=== PATIENT | female | born 1935 | race Caucasian/White ===

== ENCOUNTER 2020-06-08 13:34 | Outpatient (CLI) | payer OTHER, SELFPAY ==
--- NOTE | ~2020-06-08 | US_ITS ---
EXAMINATION: US soft tissue UE RT DATE: 06/08/2020 14:01 INDICATION: Localized swelling, mass and lump in the webspace between the right second and third digi ts. TECHNIQUE: Multiple grayscale and Doppler ultrasound images of the region of concern at the right dick d were obtained. COMPARISON: None FINDINGS: The palpable abnormality of concern corresponds to a 1.3 x 0.7 x 0.9 cm anechoic lesion with lobular margins and without internal flow on color Doppler situated dorsally between the heads of the second and third metacarpophalangeal joints consistent with a ganglion cyst. IMPRESSION: 1. 13 x 7 x 9 mm ganglion cyst. Reviewed, dictated and finalized at location B.
== END 2020-06-08 13:35 | disposition home or self-care (01) ==
PROVIDERS: PCP Family Medicine; Visit Provider Physician Assistant
DX: R22.31 Localized swelling, mass and lump, right upper limb (principal)
CPT/HCPCS: 76882

== ENCOUNTER → 2020-09-24 08:02 | Outpatient (CLI) | payer OTHER, SELFPAY ==
--- NOTE | ~2020-09-24 | CT_ITS ---
EXAMINATION: CT abdomen pelvis wo con DATE: 09/24/2020 08:20 INDICATION: Abdominal hernia without obstruction TECHNIQUE: Computed tomography (CT) of the abdomen and pelvis was performed without intravenous contr ast. Automated exposure control and iterative reconstruction technique were employed. The dose-length product was 413.78 mGy-cm. COMPARISON: None FINDINGS: A few small calcified nodules in the left lower lung along with calcified mediastinal lymph nodes and scattered hepatic and splenic calcifications consistent with old granulomatous disease. Small amount of fluid within a pneumatocele at the anterobasilar right lower lobe. Heart size is normal. There is localized intrahepatic biliary ductal dilation in segments 6 and 7 of the liver without evident obst ructing stone which raises concern for biliary stricture or obstructing mass versus glandular carcino ma at the right heriberto hepatis. Pancreas and bilateral adrenal glands are normal. Bilateral renal cyst s, the largest measuring 4.9 cm the upper pole of the right kidney. Mild left hydronephrosis without evident obstructing stone or mass. Bladder is normal. The uterus is not identified and has likely bee n surgically resected. There are few scattered sigmoid diverticula without adjacent inflammatory sanchez ge to suggest diverticulitis. No bowel obstruction. The appendix is not visualized. No pericecal infl ammatory change to suggest acute appendicitis. No free intraperitoneal gas or fluid. No pathologicall y enlarged abdominal or pelvic lymphadenopathy. Mild thoracolumbar dextrocurvature with moderate to s evere lumbar and lower thoracic spondylosis. 7 mm anterolisthesis L4 on L5. IMPRESSION: 1. Geographically limited intrahepatic biliary ductal dilation in the posterior right hepatic lobe wh ich raises concern for biliary stricture or obstructing malignancy such as cholangiocarcinoma. Would recommend further evaluation with pre and postcontrast MRI/MRCP. 2. Mild left hydronephrosis without evident obstructing stone or mass. Correlate with urinalysis and could consider further evaluation with CT urogram as clinically indicated. 3. Mild sigmoid diverticulosis. Reviewed, dictated and finalized at location B. INSPECTOR IMPRESSION: 1. Geographically limited intrahepatic biliary ductal dilation in the posterior right hepatic lobe which raises concern for biliary stricture or obstructing m alignancy such as cholangiocarcinoma. Would recommend further evaluation with p re and postcontrast MRI/MRCP. 2. Mild left hydronephrosis without evident obstructing stone or mass. Correlat e with urinalysis and could consider further evaluation with CT urogram as clin ically indicated. 3. Mild sigmoid diverticulosis.
== END ==
PROVIDERS: PCP Family Medicine; Visit Provider Family Medicine
DX: K46.9 Unspecified abdominal hernia without obstruction or gangrene (principal); K57.30 Diverticulosis of large intestine without perforation or abscess without bleeding; N20.0 Calculus of kidney
CPT/HCPCS: 74176

== ENCOUNTER 2020-10-27 15:03 | Outpatient (CLI) | payer OTHER, SELFPAY ==
[2020-10-27 15:45] LABS: Hematocrit 34.7 % (37.0-47.0); Hemoglobin 11.6 g/dL (12.0-15.0); Mean Corpuscular HGB Conc 33.4 g/dl (32-36); Mean Corpuscular Volume 95.9 fl (80-100); Mean Platelet Volume 10.5 fl (7.4-10.4); Platelet Count Result 253 k/mm3 (150-375); Red Blood Count 3.62 M/mm3 (4.2-5.4); White Blood Count 7.3 K/mm3 (4.5-10.0)
[2020-10-27 16:00] LABS: Alanine Aminotransferase 26 U/L (4-35); Albumin Level 4.3 g/dL (3.5-5.1); Alkaline Phosphatase 67 U/L (38-126); Anion Gap 7 mmol/L (8-16); Aspartate Amino Transferase 37 U/L (14-36); Bilirubin,Total 0.6 mg/dL (0.2-1.3); Blood Urea Nitrogen 26 mg/dL (7-17); Calcium 9.2 mg/dL (8.4-10.2); Carbon Dioxide 30 mmol/L (22-30); Chloride 101 mmol/L (98-107); Estimated Glomerular Filt Rate 60; Glucose 95 mg/dL (65-105); Sodium 138 mmol/L (137-145)
[2020-10-30 06:14] LABS: CA-125 3 U/mL (<35)
[2020-10-30 07:29] LABS: CA 19-9 6 U/mL (<34)
== END 2020-10-27 15:04 | disposition home or self-care (01) ==
PROVIDERS: PCP Family Medicine; Visit Provider Internal Medicine Gastroenterology
DX: R93.2 Abnormal findings on diagnostic imaging of liver and biliary tract (principal)
CPT/HCPCS: 36415; 80053; 85027; 86301; 86304

== ENCOUNTER → 2020-12-01 08:08 | Outpatient (CLI) | payer OTHER, SELFPAY ==
--- NOTE | ~2020-12-01 | CT_ITS ---
EXAMINATION: CT abdomen pelvis wo/w con EXAM DATE: 12/01/2020 09:06 INDICATION: Hydronephrosis. Partial hysterectomy. States ureter repair many years ago. Hypertension. TECHNIQUE: Spiral CT of the abdomen and pelvis was performed without contrast. The patient was then injected with small bolus intravenous Omnipaque 350, followed by delay of approximately 10 minutes to allow collecting system to opacify. A post contrast scan abdomen and pelvis was performed during inj ection of remaining contrast. A total of 130 cc intravenous contrast was administered. The dose-wilber th product (DLP) for this examination was 952.48 mGy-cm. The exposure was tailored according to onur ent size (auto mA exposure control), and iterative reconstruction (ASIR) was used as additional dose reduction technique. Comparison is made to prior examination from 09/24/2020. FINDINGS: There is mild to moderate left-sided hydroureteronephrosis to the ureterovesicular junction , ureter and pelvis appear patulous. There is patulous right-sided extrarenal pelvis, but only mild h ydronephrosis and ureter also patulous distally. There is a right renal cyst measuring 4.8 cm. The kidneys enhance symmetrically. There are no suspicious renal lesions. The calyces and opacified por tions of ureters are unremarkable, without filling defects or focal suspicious strictures. The bladd er is unremarkable. The uterus is not identified and has likely been surgically resected. Dilated hepatic biliary ducts to segment 6 and 7 of the liver, without any obstructing mass identifie d at the heriberto hepatis. Cannot exclude small cholangiocarcinoma causing this. This is unchanged rohith red to prior study. Liver is otherwise unremarkable. There are splenic granulomata. Left adrenal hype rplasia versus small adenoma. There is no retroperitoneal or pelvic lymphadenopathy. There is mild scattered arteriosclerotic disease. The appendix is not positively visualized. There is no pericecal inflammatory change to suggest appe ndicitis. There is mild sigmoid colonic diverticulosis. There is no adjacent inflammatory change to suggest diverticulitis. There is small sliding gastroesophageal hiatal hernia. There is expected marvin unt of colonic stool. No free intraperitoneal gas. The heart is normal in size. There are no per icardial or pleural effusions. There are 3 right basilar nodules identified measuring up to about 6 mm. Calcified left lower lobe gr anuloma. Most likely granulomas, appear unchanged compared to 3 months ago; recommend one-year follow -up chest CT without contrast. There are no osteoblastic or osteolytic lesions identified. Severe fac et arthropathy at L4-5. No sacral insufficiency fracture. IMPRESSION: 1. Mild to moderate left hydroureteronephrosis, mild right-sided hydronephrosis without obstructing bladder mass identified. 2. Moderately dilated hepatic biliary ducts only 2 segments 6 and 7, without any underlying etiology identified. Could be stricture but can't exclude small cholangiocarcinoma. Stable. 3. One-year follow-up chest CT without contrast recommended for several small noncalcified pulmonary nodules. 4. Mild colonic diverticulosis. Reviewed, dictated and finalized at location A. IMPRESSION: 1. Mild to moderate left hydroureteronephrosis, mild right-sided hydronephrosi s without obstructing bladder mass identified. 2. Moderately dilated hepatic biliary ducts only 2 segments 6 and 7, without a ny underlying etiology identified. Could be stricture but can't exclude small c holangiocarcinoma. Stable. 3. One-year follow-up chest CT without contrast recommended for several small noncalcified pulmonary nodules. 4. Mild colonic diverticulosis.
[2020-12-01 08:34] LABS: Estimated Glomerular Filt Rate > 60
== END ==
PROVIDERS: PCP Family Medicine; Visit Provider Urology
DX: R61 Generalized hyperhidrosis (principal); K57.30 Diverticulosis of large intestine without perforation or abscess without bleeding
CPT/HCPCS: 74178; Q9967

== ENCOUNTER 2020-12-30 10:11 | Outpatient (CLI) | payer OTHER, SELFPAY ==
[2020-12-30 10:51] LABS: Hematocrit 34.7 % (37.0-47.0); Hemoglobin 11.6 g/dL (12.0-15.0); Mean Corpuscular HGB Conc 33.4 g/dl (32-36); Mean Corpuscular Hemoglobin 32.1 pg (26-34); Mean Corpuscular Volume 96.1 fl (80-100); Platelet Count Result 230 k/mm3 (150-375); Red Blood Count 3.61 M/mm3 (4.2-5.4); White Blood Count 7.4 K/mm3 (4.5-10.0)
[2020-12-30 11:02] LABS: Alanine Aminotransferase 31 U/L (4-35); Albumin Level 4.4 g/dL (3.5-5.1); Alkaline Phosphatase 71 U/L (38-126); Anion Gap 7 mmol/L (8-16); Aspartate Amino Transferase 44 U/L (14-36); Bilirubin,Total 0.8 mg/dL (0.2-1.3); Blood Urea Nitrogen 20 mg/dL (7-17); Calcium 9.3 mg/dL (8.4-10.2); Carbon Dioxide 29 mmol/L (22-30); Chloride 101 mmol/L (98-107); Estimated Glomerular Filt Rate > 60; Glucose 96 mg/dL (65-105); Potassium 4.5 mmol/L (3.4-5.0); Sodium 137 mmol/L (137-145)
== END 2020-12-30 10:12 | disposition home or self-care (01) ==
PROVIDERS: PCP Family Medicine; Visit Provider Internal Medicine Gastroenterology
DX: R93.2 Abnormal findings on diagnostic imaging of liver and biliary tract (principal)
CPT/HCPCS: 36415; 80053; 85027

== ENCOUNTER 2021-01-17 07:38 | Outpatient (CLI) | payer OTHER, SELFPAY ==
--- NOTE | ~2021-01-17 | MR_ITS ---
EXAMINATION: MR MRCP wo/w con/w 3D wo ind DATE: 01/17/2021 09:23 INDICATION: Abnormal findings on diagnostic imaging of liver and biliary tract. TECHNIQUE: Magnetic resonance imaging (MRI) of the abdomen was performed without and with 11 mL Multi Javier intravenous contrast. Sequences included coronal T2-weighted FS FSE, coronal T2-weighted FSE, a xial T1-weighted LAVA, coronal FS FIESTA, axial dual-echo T1-weighted SPGR, coronal lava-FLEX, sagitt al T2-weighted FSE, axial T2-weighted FSE, and axial DWI. Thick-slab T2-weighted FSE images were obta ined for magnetic resonance cholangiopancreatography (MRCP). Maximum intensity projection 3-D reconst ructions of the volumetric data were created by the technologist. Postcontrast sequences included cor onal LAVA-flex and time course of axial T1-weighted LAVA. COMPARISON: CT abdomen and pelvis 12/01/2020, 09/24/20 FINDINGS: ABDOMEN MRI: There is biliary duct dilatation in posterior segment right hepatic lobe. There is sludg e in the gallbladder, which is normal in size. The spleen, pancreas, and adrenal glands are normal. T here are cysts in the kidneys measuring up to 5.4 cm on the right. There is mild left hydronephrosis and hydroureter. There are no dilated loops of bowel. There are no pathologically enlarged lymph node s. There is no free intraperitoneal fluid. ABDOMEN MRCP: There is biliary duct dilatation in posterior segment right hepatic lobe with focal petar iber change at the hilum. The common duct is normal and measures 4 mm. IMPRESSION: 1. Biliary duct dilatation in posterior segment right hepatic lobe, stable from 09/24/2020. No obstruc ting mass identified. 2. Stable mild left hydronephrosis and hydroureter. Reviewed, dictated and finalized at location B. IMPRESSION: 1. Biliary duct dilatation in posterior segment right hepatic lobe, stable from 09/24/2020. No obstructing mass identified. 2. Stable mild left hydronephrosis and hydroureter.
== END 2021-01-17 07:39 | disposition home or self-care (01) ==
PROVIDERS: PCP Family Medicine; Visit Provider Internal Medicine Gastroenterology
DX: R93.2 Abnormal findings on diagnostic imaging of liver and biliary tract (principal)
CPT/HCPCS: 74183; 76376; A9577

== ENCOUNTER 2021-05-03 15:26 | Emergency (ER) | payer OTHER, SELFPAY ==
--- NOTE | ~2021-05-03 | XR_ITS ---
EXAMINATION: XR chest 2V EXAM DATE: 05/03/2021 15:50 INDICATION: arrhythmia, HX PAD, PAF, HTN, LBBB . TECHNIQUE: Frontal and lateral projections of the chest obtained and reviewed. Comparison is made to prior examination from 05/28/2017. FINDINGS: The lungs are clear. There are no pleural effusions. The cardiomediastinal silhouette is within normal limits. There is no pneumothorax suspected. Mild thoracolumbar dextroscoliosis. IMPRESSION: No acute cardiopulmonary findings. Reviewed, dictated and finalized at location A.
--- NOTE | 2021-05-03 15:28 | ECG_ITS ---
Measurements Intervals [place] Rate: 65 P: 38 DC: 168 QRS: -38 QRSD: 142 T: 85 QT: 445 QTc: 465 Interpretive Statements SINUS RHYTHM LEFT AXIS DEVIATION LEFT BUNDLE BRANCH BLOCK ABNORMAL ECG Electronically Signed On 05-03-2021 20:34:46 CDT by Oz Gavin D.O.
[2021-05-03 16:09] VITALS: BP 162/80; PULSE 69; RESP 14; TEMP 36.9; O2SAT 98
[2021-05-03 16:29] LABS: Basophils Absolute Auto 0.1 K/mm3 (0.0-0.1); Basophils Percent Auto 0.9 % (0.2-1.2); Eosinophils Absolute Auto 0.2 K/mm3 (0-0.3); Eosinophils Percent Auto 3.5 % (0-4.4); Hematocrit 34.8 % (37.0-47.0); Hemoglobin 11.6 g/dL (12.0-15.0); Immature Granulocyte Absolute 0.02 K/mm3 (0.00-0.031); Immature Granulocyte Percent A 0.3 % (0-0.5); Lymphocytes Absolute Auto 1.92 K/mm3 (0.9-3.2); Lymphocytes Percent Auto 27.6 % (18.3-44.2); Mean Corpuscular HGB Conc 33.3 g/dl (32-36); Mean Corpuscular Volume 98.9 fl (80-100); Mean Platelet Volume 9.9 fl (7.4-10.4); Monocytes Absolute Auto 0.8 K/mm3 (0.1-0.6); Monocytes Percent Auto 11.5 % (2.6-8.5); Neutrophils Absolute Auto 3.9 K/mm3 (1.3-6.7); Neutrophils Percent Auto 56.2 % (45.5-73.1); Platelet Count Result 216 k/mm3 (150-375); Red Blood Count 3.52 M/mm3 (4.2-5.4); Red Cell Distribution Width 13.5 % (11.5-14.5)
[2021-05-03 16:40] LABS: Anion Gap 6 mmol/L (8-16); Blood Urea Nitrogen 21 mg/dL (7-17); Carbon Dioxide 27 mmol/L (22-30); Chloride 106 mmol/L (98-107); Estimated CRCL calculation 43 ml/min; Estimated Glomerular Filt Rate > 60; Glucose 100 mg/dL (65-110); Potassium 3.8 mmol/L (3.4-5.0); Sodium 139 mmol/L (137-145)
[2021-05-03 16:42] LABS: INR 0.9; Partial Thromboplastin Time 27.3 SECONDS (22.3-36.8); Prothrombin Time 12.2 Seconds (11.1-14.7)
[2021-05-03 16:52] LABS: Troponin I < 0.012 ng/mL (0.000-0.034)
--- NOTE | 2021-05-03 17:48 | PC.NURSE ---
left at 1748 due to wait. pt denies chest pain, irregular heart beat or sob. encouraged to return if condition changes/worsens
== END 2021-05-04 00:25 | disposition left against medical advice (07) ==
PROVIDERS: Emergency Provider Emergency Medicine; PCP Family Medicine
DX: R00.8 Other abnormalities of heart beat (principal); Z53.21 Procedure and treatment not carried out due to patient leaving prior to being seen by health care provider
CPT/HCPCS: 36415; 71046; 80048; 84484; 85025; 85610; 85730; 93005; 99199

== ENCOUNTER 2021-08-10 08:56 | Outpatient (CLI) | payer OTHER, SELFPAY ==
--- NOTE | ~2021-08-10 | MR_ITS ---
EXAMINATION: MR MRCP wo/w con/w 3D wo ind DATE: 08/10/2021 10:18 INDICATION: Abnormal findings on diagnostic imaging of the liver and biliary tract TECHNIQUE: Magnetic resonance imaging (MRI) of the abdomen was performed without and with intravenous contrast. Sequences included coronal T2-weighted SS-FSE ARC, coronal T2-weighted FS SS-FSE, coronal T2-weighted 2D FS FIESTA, Water:Coronal LAVA-Flex, sagittal T2-weighted SS-FSE ARC, axial SSFSE ARC, axial 3D DualEcho, axial DWI B=600, axial T1-weighted LAVA, FAT:Coronal LAVA-Flex, and coronal in and opposed phase LAVA-Flex. Thick-slab T2-weighted FRFSE-XL images were obtained for magnetic resonance cholangiopancreatography (MRCP). Maximum intensity projection 3-D reconstructions of the volumetric data were created by the technologist. Postcontrast sequences included a time course of axial T1-weig hted LAVA, FAT:Coronal LAVA-Flex, coronal in and opposed phase LAVA-Flex, and Water:Coronal LAVA-Flex . COMPARISON: 12/28/2020 CONTRAST: Multihance, 10 cc FINDINGS: ABDOMEN MRI: There is stable intrahepatic biliary dilatation in the posterior segment of the right he patic lobe. The spleen, pancreas, and adrenal glands are normal. A small amount of sludge is present in the otherwise normal gallbladder. Cysts of the kidneys measure up to 4.9 cm on the right. There ar e no pathologically enlarged abdominal lymph nodes. There are no dilated loops of bowel. There is mod erate thoracic and lumbar spondylosis. ABDOMEN MRCP: There is stable intrahepatic biliary dilatation the posterior segment of the right hepa tic lobe continuing to the level of a biliary stricture is seen at the liver hilum. No mass is identi fied. The pancreatic duct is normal. The common bile duct is normal. IMPRESSION: 1. Stable biliary dilatation in the posterior segment of the right hepatic lobe without obstructing m ass identified. Reviewed, dictated and finalized at location A. PRESIDENT OF BRAND MANAGEMENT IMPRESSION: 1. Stable biliary dilatation in the posterior segment of the right hepatic lobe without obstructing mass identified.
[2021-08-10 09:35] LABS: Estimated Glomerular Filt Rate > 60
== END 2021-08-10 08:57 | disposition home or self-care (01) ==
LOC: ANHIMG 08:58
PROVIDERS: PCP Family Medicine; Visit Provider Internal Medicine Gastroenterology
DX: R93.2 Abnormal findings on diagnostic imaging of liver and biliary tract (principal); K83.8 Other specified diseases of biliary tract
CPT/HCPCS: 74183; 76376; A9577

== ENCOUNTER 2021-08-26 08:59 | Outpatient (CLI) | payer OTHER, SELFPAY ==
[2021-08-26 09:36] LABS: Alanine Aminotransferase 24 U/L (4-35); Albumin Level 4.5 g/dL (3.5-5.1); Alkaline Phosphatase 65 U/L (38-126); Anion Gap 7 mmol/L (8-16); Aspartate Amino Transferase 32 U/L (14-36); Bilirubin,Total 0.9 mg/dL (0.2-1.3); Blood Urea Nitrogen 17 mg/dL (7-17); Calcium 9.1 mg/dL (8.4-10.2); Carbon Dioxide 31 mmol/L (22-30); Chloride 97 mmol/L (98-107); Estimated Glomerular Filt Rate > 60; Glucose 88 mg/dL (65-110); Potassium 4.2 mmol/L (3.4-5.0); Sodium 135 mmol/L (137-145)
== END 2021-08-26 09:00 | disposition home or self-care (01) ==
PROVIDERS: PCP Family Medicine; Visit Provider Internal Medicine Gastroenterology
DX: R93.2 Abnormal findings on diagnostic imaging of liver and biliary tract (principal); K83.8 Other specified diseases of biliary tract
CPT/HCPCS: 36415; 80053

== ENCOUNTER → 2021-11-29 13:32 | Outpatient (CLI) | payer OTHER, SELFPAY ==
--- NOTE | ~2021-11-29 | CT_ITS ---
EXAMINATION: CT abdomen pelvis w con EXAM DATE: 11/29/2021 14:17 INDICATION: R10.32 - Left lower quadrant pain . Inguinal hernia. TECHNIQUE: Spiral CT of the abdomen and pelvis was performed following intravenous injection of 100 m L Omnipaque 350. Axial, coronal and sagittal images of the abdomen and pelvis were reviewed. The do se-length product (DLP) for this examination was 422.51 mGy-cm. The exposure was tailored according to patient size (auto mA exposure control), and iterative reconstruction (ASIR) was used as additiona l dose reduction technique. Comparison is made to prior examination from 12/01/2020. FINDINGS: There is mild bulging of the left lower quadrant abdominal wall above the inguinal canal, w ithout discrete hernia. There is persistent dilation of intrahepatic biliary ducts in segment 6 and 7 without interval progression, or a focal mass identified. Splenic granulomata. Pancreas, adrenal gla nds are unremarkable. Kidneys enhance symmetrically, no hydronephrosis. There is a 5.3 cm cyst in the right kidney. Uterus has been resected. Bladder is unremarkable. Mild aortic arterial sclerosis. No small bowel dilation. Expected amount of colonic stool. No retroperitoneal lymphadenopathy. On prior study there were several noncalcified lung base nodules. The largest of this has demonstrate d mild interval increase in size, some of the cystic component appears to have filled in, but is also lower in density than soft tissue. It could be that cystic component has filled with fluid. Still fa vor that this is benign finding. Other smaller, subcentimeter pulmonary nodules are stable. There are no osteoblastic or osteolytic lesions identified. Advanced lower lumbar spondylosis. IMPRESSION: 1. Mild increase in size of low-density right lower lobe nodule still suspected most likely postinfe ctious. Could obtain PET/CT, or follow-up chest CT in 3-6 months. 2. Stable appearance to dilated liver ducts. Can't exclude underlying cholangiocarcinoma but no live r mass and stability provides some reassurance. 3. Reviewed, dictated and finalized at location A. IMPRESSION: 1. Mild increase in size of low-density right lower lobe nodule still suspecte d most likely postinfectious. Could obtain PET/CT, or follow-up chest CT in 3-6 months. 2. Stable appearance to dilated liver ducts. Can't exclude underlying cholangi ocarcinoma but no liver mass and stability provides some reassurance. 3.
[2021-11-29 14:07] LABS: Estimated Glomerular Filt Rate > 60
== END ==
PROVIDERS: PCP Family Medicine; Visit Provider Nurse Practitioner Gerontology
DX: R10.9 Unspecified abdominal pain (principal)
CPT/HCPCS: 74177; Q9967

== ENCOUNTER 2022-03-10 06:32 | Outpatient (CLI) | payer OTHER, SELFPAY ==
--- NOTE | ~2022-03-10 | CT_ITS ---
EXAMINATION:CT diagnostic chest wo con DATE: 03/10/2022 07:06 INDICATION: Lung nodule. TECHNIQUE: Computed tomography (CT) of the chest was performed without intravenous contrast. Automate d exposure control and iterative reconstruction technique were employed. The dose-length product (DLP ) was 60.15 mGy-cm. COMPARISON: CT abdomen and pelvis 11/29/2021, 12/01/2020 FINDINGS: There is mild scarring at the lung apices. There is a 4 mm nodule in right upper lobe. Ther e is a 5 mm nodule in right lower lobe that measured 4 mm on 12/01/20. There is a cavitary 10 mm nodule in right lower lobe, stable from 12/01/20. In right lower lobe, there is an 11 mm part solid nodule wi th 6 mm solid component, stable from 12/01/20. There is mild atelectasis bilaterally. Calcified left klever ng nodules and calcified left hilar lymph nodes are consistent with old granulomatous disease. No ple ural effusion. The heart size is normal. There are coronary artery calcifications. No pericardial eff usion. Calcifications in the spleen are consistent with old granulomatous disease. There is a 5.1 m c yst in right kidney. There is severe cervical spondylosis and moderate thoracic spondylosis. IMPRESSION: 1. Stable pulmonary nodules, likely benign. Reviewed, dictated and finalized at location A.
== END 2022-03-10 06:33 | disposition home or self-care (01) ==
PROVIDERS: PCP Family Medicine; Visit Provider Nurse Practitioner Gerontology
DX: R91.8 Other nonspecific abnormal finding of lung field (principal)
CPT/HCPCS: 71250

== ENCOUNTER → 2022-07-10 14:57 | Outpatient (CLI) | payer OTHER, SELFPAY ==
--- NOTE | ~2022-07-10 | MM_ITS ---
EXAMINATION: MM screening daniella BI w leonila HISTORY: Screening TECHNIQUE: Craniocaudal and mediolateral oblique 3-D tomosynthesis images were obtained and synthetic 2-D images were generated. CAD analysis was submitted and interpreted. COMPARISON: No prior mammogram is available for comparison at this institution. BREAST PARENCHYMAL COMPOSITION: The breasts are heterogeneously dense, which may obscure small masses FINDINGS: There are possible new asymmetries laterally in the right breast on CC view. The left breas t is stable without evidence for malignancy. IMPRESSION: 1. Possible new focal asymmetries laterally in the right breast on CC view. 2. Additional mammographic views and possible breast ultrasound are recommended. BI-RADS Category 0: Incomplete: Needs additional imaging evaluation. Reviewed, dictated and finalized at location A. ADER IMPRESSION: 1. Possible new focal asymmetries laterally in the right breast on CC view. 2. Additional mammographic views and possible breast ultrasound are recommended . BI-RADS Category 0: Incomplete: Needs additional imaging evaluation.
--- NOTE | ~2022-07-10 | DEXA_ITS ---
Bone Density Report Name: AIMEE MONTILLA Age: 86 Sex: Female Ethnicity: White Date of : 1935 Indication: postmenopausal; screening for osteoporosis; height loss; hysterectomy; Referring Provider: ELGIN ZAMUDIO Study: Bone densitometry was performed. Exam Date: July 10, 2022 Accession number: [id number] Bone Density: Region BMD T-score Z-score Classification AP Spine (L1-L4) 1.107 0.5 3.4 Normal Femoral Neck (Left) 0.648 -1.8 0.7 Osteopenia Total Hip (Left) 0.822 -1.0 1.3 Normal Femoral Neck (Right) 0.635 -1.9 0.6 Osteopenia Total Hip (Right) 0.797 -1.2 1.2 Osteopenia Total Hip Mean 0.810 -1.1 1.3 Osteopenia World Health Organization criteria for BMD impression classify patients as: Normal (T-score at or above -1.0), Osteopenia (T-score between -1.0 and -2.5), or Osteoporosis (T-score at or below -2.5). 10-year Fracture Risk(1): Major Osteoporotic Fracture 15% Hip Fracture 4.7% Reported Risk Factors: [place] (), Neck BMD=0.635, BMI=23.9 (1) FRAX(R) Version 3.08. Fracture probability calculated for an untreated patient. Fracture probability may be lower if the patient has received treatment. Previous Exams: Region Exam Age BMD T-score BMD Change BMD Change Date g/cm2 vs Baseline vs Previous AP Spine(L1-L4) 07/10/2022 86 1.107 0.5 0.065* 0.065* 03/16/2014 78 1.042 0.0 Total Hip(Left) 07/10/2022 86 0.822 -1.0 0.004 0.004 03/16/2014 78 0.818 -1.0 Total Hip(Right) 07/10/2022 86 0.797 -1.2 -0.017 -0.017 03/16/2014 78 0.815 -1.0 *Denotes significance at 95% confidence level, LSC for AP Spine = 0.022 g/cm2, LSC for Total Hip = 0.027 g/cm2 Clinical Information Provided by Patient: Has the following medical conditions: Hysterectomy Patient maximum height was 63 Menopause Age: 53 Drinks caffeinated beverages Onset of menses at age 14 Number of children 3 Impression: The patient has low bone mass, based on the Right Femoral Neck T-score. The patient has an estimated ten-year risk of hip fracture of 4.7% and an estimated ten-year risk of major fracture of 15%, based on the WHO FRAX algorithm. No significant bone loss was observed. Discussion: BONE DENSITY IS LOW AT ONE OR MORE SKELETAL SITES. THE PATIENT'S BMD AND CLINICAL RISK FACTORS CONTRIBUTE TO THIS PATIENT'S INCREASED RISK OF FRACTURE. This patient's lowest T-score is low at
== END ==
PROVIDERS: PCP Family Medicine; Visit Provider Family Medicine
DX: Z12.31 Encounter for screening mammogram for malignant neoplasm of breast (principal); Z78.0 Asymptomatic menopausal state; R92.8 Other abnormal and inconclusive findings on diagnostic imaging of breast; M85.852 Other specified disorders of bone density and structure, left thigh; M85.851 Other specified disorders of bone density and structure, right thigh
CPT/HCPCS: 77063; 77067; 77080

== ENCOUNTER 2022-07-27 12:07 | Outpatient (CLI) | payer OTHER, SELFPAY ==
--- NOTE | ~2022-07-27 | MM_ITS ---
EXAMINATION: MM diagnostic daniella RT w leonila HISTORY: Right breast asymmetry on screening mammogram. TECHNIQUE: Additional 3-D tomosynthesis images of the right breast were performed and synthetic 2-D i mages were generated. CAD analysis was submitted and interpreted. COMPARISON: 07/10/2022, 01/03/2017,01/15/2013 FINDINGS: There is a return to baseline fibroglandular appearance with spot compression of the right breast in the area questioned on screening mammogram. IMPRESSION: 1. No mammographic evidence of malignancy. 2. Recommend routine screening mammography in one year. BI-RADS Category 1: Negative Reviewed, dictated and finalized at location A. ZEL COOKER
== END 2022-07-27 12:08 | disposition home or self-care (01) ==
LOC: ANHIMG 12:08
PROVIDERS: PCP Family Medicine; Visit Provider Nurse Practitioner Gerontology
DX: R92.8 Other abnormal and inconclusive findings on diagnostic imaging of breast (principal)
CPT/HCPCS: 77061; 77065; G0279

== ENCOUNTER 2022-08-07 14:59 | Outpatient (CLI) | payer OTHER, SELFPAY ==
[2022-08-07 17:23] LABS: Appearance Urine Slightly Cloudy (Clear); Bilirubin Urine Negative (Negative); Blood Urine Trace-intact (Negative); Color Urine Yellow (Yellow); Glucose Urine UA Negative (Negative); Ketones Urine Negative (Negative); Leukocyte Esterase Ur 3+ LEU/UL (Negative); Nitrate Urine Negative (Negative); Protein Urine Negative (Negative); Urobilinogen Urine 0.2 mg/dL (<2.0)
[2022-08-07 17:29] LABS: Add Urine Microscopic? YES; WBC Urine >75 /hpf
== END 2022-08-07 15:00 | disposition home or self-care (01) ==
PROVIDERS: PCP Family Medicine; Visit Provider Nurse Practitioner Gerontology
DX: R30.0 Dysuria (principal)
CPT/HCPCS: 81001; 87077; 87086; 87186

== ENCOUNTER 2022-08-08 11:40 | Outpatient (CLI) | payer OTHER, SELFPAY ==
--- NOTE | 2022-08-08 11:55 | ECG_ITS ---
Measurements Intervals [place] Rate: 65 P: 29 MO: 164 QRS: -45 QRSD: 143 T: 93 QT: 461 QTc: 481 Interpretive Statements SINUS RHYTHM MARKED LEFT AXIS DEVIATION [QRS AXIS < -30] LEFT BUNDLE BRANCH BLOCK [120+ ms QRS DURATION, 80+ ms Q/S IN V1/V2, 85+ ms R IN I/aVL/V5/V6] COMPARED TO ECG 05/03/2021 16:17:23 NO SIGNIFICANT CHANGES Electronically Signed On 08-08-2022 16:36:32 MACHINE [employer] by Ivory Metcalf M.D.
== END 2022-08-08 11:41 | disposition home or self-care (01) ==
PROVIDERS: PCP Family Medicine; Visit Provider Surgery
DX: K40.90 Unilateral inguinal hernia, without obstruction or gangrene, not specified as recurrent (principal); I10 Essential (primary) hypertension; Z01.818 Encounter for other preprocedural examination; I44.7 Left bundle-branch block, unspecified
CPT/HCPCS: 36415; 86850; 86900; 86901; 93005

== ENCOUNTER 2022-08-15 00:55 | Day surgery (SDC) | payer OTHER, SELFPAY ==
[2022-06-29 11:23] VITALS: BMI 23.6
--- NOTE | 2022-06-29 11:45 | PC.NURSE ---
PRE-OP INSTRUCTIONS, PLEASE READ CAREFULLY Report to the Outpatient Waiting Room, entrance under the green pavilion located off [facility], at time _0600_ on date _07/12/22_. Planned Procedure Time: _0730_. Time changes happen often and if your time is changed the preop area will call you the afternoon before. - You and your visitor will be asked to self-screen and do not enter if you have any COVID symptoms. - We encourage only one visitor and NO visitors under age 16 are allowed at this time. Your visitor will receive communication by the phone number that is given day of service. - The patient visitor is requested to social distance or may leave the building when not with patient due to restrictions. - A mask is required within the hospital. Patients may have clear liquids (water, carbonated beverages, clear teas, apple juice) until 3 hours prior to surgery with a maximum of 20 ounces. - No food from midnight until time of surgery Take the following medications with a SIP of water the morning of surgery: _MEMANTINE, METOPROLOL, SYNTHROID_ Medications to discontinue per ANESTHESIA -_MULTIVITAMIN, PROBIOTIC 3 DAYS PRIOR TO SURGERY, Date to take last dose 07/08/22_ Please no make-up, nail comoran, hairspray, perfume, deodorant, or body powder the day of surgery. No jewelry (including any body piercings) or valuables the day of surgery, leave them at home. Please take a shower or bath the night before, or the morning of, surgery with an antibacterial soap. Wear comfortable, loose fitting clothing. - Jewelry must be removed prior to entering the operating room. Rings and piercings that are not removed may be cut off. - The hospital will not accept responsibility for valuables. - Please leave all valuables, including medications, at home the day of surgery. If you are going home after surgery, a licensed ambulance driver paramedic must drive you home. - NO public transportation without another adult. - We recommend that an adult stay with you for 24 hours following discharge. - We also recommend that you do not drive, make important decision, drink alcoholic beverages, or take any drugs that were not prescribed by your health care provider for at least 24 hours after your discharge time. Follow any additional instructions given to you from your surgeon. If you or anyone in your household have experienced Covid symptoms in the past week, please notify your surgeon or the nurse liaison at the phone number below for possible testing. Telephone instructions given to ___PT and asked if any additional questions and then verbalized understanding. Patient advised to call surgeon office or pre surgery nurse liaison [phone] if any additional questions.
[2022-08-01 09:30] VITALS: BMI 23.6
--- NOTE | 2022-08-01 09:36 | PC.NURSE ---
PRE-OP INSTRUCTIONS, PLEASE READ CAREFULLY Report to the Outpatient Waiting Room, entrance under the green pavilion located off [facility], at time _1100_ on date _08/15/22_. Planned Procedure Time: __1 PM___. Time changes happen often and if your time is changed the preop area will call you the afternoon before. - You and your visitor will be asked to self-screen and do not enter if you have any COVID symptoms. - Only one visitor is requested with a max of two and NO children visitors are allowed at this time. - The patient visitor may be requested to leave or wait in car when not with patient due to distancing restrictions. - A mask is optional within the hospital. Patients may have clear liquids (water, carbonated beverages, clear teas, apple juice) until 3 hours prior to surgery (1000 AM) with a maximum of 20 ounces. - No food from midnight until time of surgery Take the following medications with a SIP of water the morning of surgery: _MEMANTINE, METOPROLOL, SYNTHROID_ Medications to discontinue per ANESTHESIA - _MULTIVITAMIN, PROBIOTIC 3 DAYS PRIOR TO SURGERY, Date to take last dose 08/11/22_ Please no make-up, nail micronesian, hairspray, perfume, deodorant, or body powder the day of surgery. No jewelry (including any body piercings) or valuables the day of surgery, leave them at home. Please take a shower or bath the night before, or the morning of, surgery with an antibacterial soap. Wear comfortable, loose fitting clothing. - Jewelry must be removed prior to entering the operating room. Rings and piercings that are not removed may be cut off. - The hospital will not accept responsibility for valuables. - Please leave all valuables, including medications, at home the day of surgery. If you are going home after surgery, a licensed starting gate driver must drive you home. - NO public transportation without another adult if you receive anesthesia. - We recommend that an adult stay with you for 24 hours following discharge. - We also recommend that you do not drive, make important decision, drink alcoholic beverages, or take any drugs that were not prescribed by your health care provider for at least 24 hours after your discharge time. Follow any additional instructions given to you from your surgeon. HIBICLENS SHOWER AM OF SURGERY If you or anyone in your household have experienced Covid symptoms in the past week, please notify your surgeon or the nurse liaison at the phone number below for possible testing. Telephone instructions given to ___PT and asked if any additional questions and then verbalized understanding. Patient advised to call surgeon office or pre surgery nurse liaison [phone] if any additional questions.
[2022-08-15] VITALS (7 sets, daily range): BP systolic 107–139; BP diastolic 52–86; PULSE 70–121; RESP 10–16; TEMP 36.8–37.1; O2SAT 95–100
[2022-08-15] MEDS: LACTATED RINGERS 1,000 ML 30 ML IV CONT ×2 (08:30→10:40)
[2022-08-15] MEDS: KETOROLAC 15 MG/ML VIAL (*BKC) IV PUSH (08:30)
[2022-08-15] MEDS: ACETAMINOPHEN 500 MG TABLET 1000 MG PO (08:30)
--- NOTE | 2022-08-15 08:36 | PM.IMHP ---
H&P: HPI History of Present Illness Date/Time: 08/15/22 08:36 Chief Complaint: Left inguinal hernia Narrative: This is an 86-year-old woman who presents for left inguinal hernia repair. She has noticed the hernia for about 1 year. She denies any changes since last seen this. Review of Systems Review of Systems: All systems reviewed & are unremarkable except as noted in HPI and below Constitutional: Constitutional: Denies chills, Denies fever(s), Denies headache(s) and Denies weight loss Eyes: Eyes: Denies change in vision ENT: Denies dizziness, Denies headache(s), Denies neck mass and Denies throat swelling Cardiovascular: Cardiovascular: Denies chest pain, Denies lightheadedness and Denies dyspnea Respiratory: Respiratory: Denies cough, Denies dyspnea and Denies wheezing Gastrointestinal: Gastrointestinal: Denies abdominal pain, Denies change in bowel habits, Denies nausea and Denies vomiting Genitourinary: Genitourinary: Denies hematuria and Denies dysuria Musculoskeletal: Musculoskeletal: Reports as per HPI Integumentary/Breasts: Skin/Breast: Reports as per HPI Neurologic: Denies dizziness and Denies headache(s) Allergic/Immunologic: Allergic/Immunologic: Denies throat swelling and Denies wheezing PMFSH Past Medical History Medical History Abnormal findings on diagnostic imaging of liver and biliary tract Acquired hypothyroidism Age-related osteoporosis without current pathological fracture Balance problem Dilated bile duct Diverticulosis Essential (primary) hypertension Hydronephrosis LBBB (left bundle branch block) Mass of right hand PAD (peripheral artery disease) PAF (paroxysmal atrial fibrillation) Post viral syndrome Pulmonary nodule Right upper quadrant abdominal pain Sinusitis Uterine prolapse Family History Family History Sibling Patient's sister is in good health Family history of diabetes mellitus in first degree relative Family history of malignant neoplasm of breast in first degree relative Patient's sister is Mother Patient's mother is Father Patient's father is Social History Social History Social History: Smoking status: Never smoker Second hand tobacco smoke exposure: No Alcohol intake: current Drinks per week: 7 Alcohol use details: Occasionally Substance use: never Substance use type: does not use Living arrangements: with family Gender identity (if verbalized by the patient): Female Sexual Orientation (if Verbalized by the Patient): Straight or Heterosexual Spiritual care concerns: No Meds Home Medications and Allergies Home Medications Medication Instructions Recorded Confirmed Type aspirin 81 mg tablet,delayed 81 mg PO DAILY 09/02/19 08/01/22 History release (Adult Low Dose Aspirin) metoprolol succinate 25 mg See Rx Instructions .Route 01/18/22 08/01/22 Rx tablet,extended release 24 hr .COMPLEX #45 tabs amlodipine 5 mg tablet See Rx Instructions .Route 05/17/22 08/01/22 Rx .COMPLEX #90 tabs losartan 50 mg tablet See Rx Instructions .Route 05/22/22 08/01/22 Rx .COMPLEX #180 tabs Synthroid 50 mcg tablet See Rx Instructions .Route 05/28/22 08/01/22 Rx (levothyroxine) .COMPLEX #90 tabs memantine 5 mg tablet See Rx Instructions .Route 06/09/22 08/01/22 Rx .COMPLEX #180 tabs Probiotic 1 tab-cap BID 06/29/22 08/01/22 History loratadine 10 mg capsule 10 mg PO DAILY PRN CONGENSTION 06/29/22 08/01/22 History multivitamin 1 tablet PO DAILY 06/29/22 08/01/22 History polyethylene glycol 3350 17 8.5 g PO DAILY PRN Constipation 06/29/22 08/01/22 History gram/dose oral powder ciprofloxacin HCl 500 mg tablet 500 mg PO Q12H #20 tabs 08/08/22 Rx (Cipro) Allergies Allergy/AdvReac Typ
--- NOTE | 2022-08-15 08:37 | WPDHPUPDATE1 ---
History and Physical Update Update Date/Time: 08/15/22 08:37 History and Physical has been reviewed, including an updated exam of the patient. There are NO changes in the patient's condition. Risks, benefits, and alternatives have been discussed and questions answered. Patient agrees to proceed with procedure.
--- NOTE | 2022-08-15 08:44 | WPDANESEPPF ---
Anes - Initial Pre Proc Eval Procedure: Operation Date: 08/15/22 09:30 Proposed Procedures p Laparoscopic Left Inguinal Hernia Repair, with Mesh Davinci Assisted - Vinh Ford DO Date/Time: 08/15/22 08:44 Surgeon: Vinh Ford DO Pre Op Diagnosis: Lt Ing Hernia Patient Data Age: 86 Gender: F Height: 1.55 m Weight: 57.6 kg Last Vital Signs Temp 37.1 C 08/15/22 08:34 Pulse 121 H 08/15/22 08:34 Resp 14 08/15/22 08:34 BP 138/86 08/15/22 08:34 Pulse Ox 99 08/15/22 08:34 O2 Del Method Room Air 08/15/22 08:34 Allergies Allergy/AdvReac Type Severity Reaction Status Date / Time SUJATHA Inhibitors Allergy Unknown Unknown-UNABLE Verified 08/15/22 08:40 TO RECALL REACTION citalopram Allergy Unknown confusion Verified 08/15/22 08:40 erythromycin base Allergy Unknown itchy Verified 08/15/22 08:40 Sulfa (Sulfonamide Allergy Unknown itchy Verified 08/15/22 08:40 Antibiotics) tetracycline Allergy Unknown itchy Verified 08/15/22 08:40 Home Medications Medication Instructions Recorded Confirmed Type aspirin 81 mg tablet,delayed 81 mg PO DAILY 09/02/19 08/01/22 History release (Adult Low Dose Aspirin) metoprolol succinate 25 mg See Rx Instructions .Route 01/18/22 08/01/22 Rx tablet,extended release 24 hr .COMPLEX #45 tabs amlodipine 5 mg tablet See Rx Instructions .Route 05/17/22 08/01/22 Rx .COMPLEX #90 tabs losartan 50 mg tablet See Rx Instructions .Route 05/22/22 08/01/22 Rx .COMPLEX #180 tabs Synthroid 50 mcg tablet See Rx Instructions .Route 05/28/22 08/01/22 Rx (levothyroxine) .COMPLEX #90 tabs memantine 5 mg tablet See Rx Instructions .Route 06/09/22 08/01/22 Rx .COMPLEX #180 tabs Probiotic 1 tab-cap BID 06/29/22 08/01/22 History loratadine 10 mg capsule 10 mg PO DAILY PRN CONGENSTION 06/29/22 08/01/22 History multivitamin 1 tablet PO DAILY 06/29/22 08/01/22 History polyethylene glycol 3350 17 8.5 g PO DAILY PRN Constipation 06/29/22 08/01/22 History gram/dose oral powder ciprofloxacin HCl 500 mg tablet 500 mg PO Q12H #20 tabs 08/08/22 Rx (Cipro) Patient hx anesthesia problems: none Family hx anesthesia problems: none Results Review: All pre-operative results and documents have been reviewed as part of the pre-operative evaluation. [facility] Past Medical History Medical History Abnormal findings on diagnostic imaging of liver and biliary tract Acquired hypothyroidism Age-related osteoporosis without current pathological fracture Balance problem Dilated bile duct Diverticulosis Essential (primary) hypertension Hydronephrosis LBBB (left bundle branch block) Mass of right hand PAD (peripheral artery disease) PAF (paroxysmal atrial fibrillation) Post viral syndrome Pulmonary nodule Right upper quadrant abdominal pain Sinusitis Uterine prolapse Family History Family History Sibling Patient's sister is in good health Family history of diabetes mellitus in first degree relative Family history of malignant neoplasm of breast in first degree relative Patient's sister is Mother Patient's mother is Father Patient's father is Social History Social History Social History: Smoking status: Never smoker Second hand tobacco smoke exposure: No Alcohol intake: current Drinks per week: 7 Alcohol use details: Occasionally Substance use: never Substance use type: does not use Living arrangements: with family Gender identity (if verbalized by the patient): Female Sexual Orientation (if Verbalized by the Patient): Straight or Heterosexual Spiritual care concerns: No Anes - Eval Final PreProcedure Day of Procedure 08/15/22 08:44 Patient weight: normal Heart: regular ra
[2022-08-15] MEDS: ceFAZolin 2 GM/D5W 50 ML 2 GM/50 ML BAG IVPB (08:58)
[2022-08-15] MEDS: BUPIVACAINE/EPINEPHRINE 0.5% 10 ML VIAL 30 ML INFILTRATE (09:33)
--- NOTE | 2022-08-15 10:23 | W.PM.PROC2 ---
Procedure Note - Detailed Date of Procedure 08/15/22 Pre-op Diagnosis Left Ing Hernia Post-op Diagnosis Other (Bilateral indirect inguinal hernia) Procedure Performed Laparoscopic bilateral inguinal hernia repair with mesh, da Jimy assisted Surgeon Vinh Ford DO Anesthesia General and Local (0.5% bupivacaine with epinephrine) Indications This is an 86-year-old woman who presented with left groin pain and a bulge that she had noticed about 1 year ago. She occasionally has to push this back in wear a belt to prevent it protruding. She was found have a reducible left inguinal hernia on physical exam. Discussions were made with the patient about treatment options and decision was made to proceed with robotic assisted laparoscopic left inguinal hernia repair with mesh. Findings Upon inspecting the abdomen laparoscopically, patient was found have bilateral indirect inguinal hernias. The left inguinal hernia was moderate size and the right inguinal hernia was small. A robotic transabdominal preperitoneal approach was utilized for repair both hernias. Large Bard 3DMax mid mesh was placed on each side overlying the myopectineal orifice. No specimens were obtained for pathology. Description of Procedure Procedure as well as risks, benefits, and alternatives were discussed with the patient. Written consent was obtained and placed in chart prior to procedure. Patient was brought back to surgical suite. She was placed supine on operating table. Time-out was done to confirm patient and procedure. She was then intubated by Anesthesia Department. Her abdomen was prepped and draped in sterile fashion using chlorhexidine prep. 0.5% bupivacaine with epinephrine was infiltrated at each location for incision. An 8 mm incision was made in the left lateral abdomen, and a 5 mm Optiview trocar was advanced through the abdominal layers under direct visualization. Once inside the abdominal cavity, carbon dioxide insufflation was used to create a pneumoperitoneum. A camera was inserted and the abdominal cavity was inspected. The patient was placed in slight Trendelenburg position. An 8 millimeter incision was made on the right lateral abdomen and an 8 millimeter trocar was inserted under direct visualization. Another 8 millimeter incision was made just superior to the umbilicus and an 8 millimeter trocar was inserted under direct visualization. The 5 mm port was then removed and this was replaced with another 8 mm robotic port. The robotic arms were brought up to the patient's bedside and secured to the ports. The camera and instruments were inserted. I then moved over to the robotic console and took control of the camera and instruments. After careful inspection of the abdominal cavity, I began scoring the peritoneum along the left lower quadrant using scissors with electrocautery. The preperitoneal plane was entered and this was carefully dissected caudally along the inferior epigastric vessels. Careful dissection with scissors with electrocautery and blunt dissection was used to continue this dissection. I dissected far enough laterally to allow for mesh placement, and also dissected medially to identify the pubic arch and Prashant's ligament. The hernia sac was identified and carefully dissected posteriorly. The round ligament was identified and transected using electrocautery to allow for far enough posterior dissection for mesh placement. Once an adequate pocket was created, I then placed the mesh within the preperitoneal pocket and carefully unfolded it. The mesh was centered on the hernia defect with adequate overlap circumferentially. The inferior edge of the mesh was inspected to ensure that it was far enough away from the peritoneal edge. The mesh appeared in proper position overlying the entire myopectineal orifice. The mesh was secured using 3-0 Vicryl simple interrupted sutures in Prashant's ligament, the superior medial edge, and superior lateral edge
[2022-08-15] MEDS: fentaNYL CITRATE INJ (*CRX) 100 MCG/2 ML VIAL 25 MCG IV PUSH (10:56)
== END 2022-08-15 12:25 | disposition home or self-care (01) ==
PROVIDERS: PCP Family Medicine; Visit Provider Surgery
PROC: 8E0Y4CZ Robotic Assisted Procedure of Lower Extremity, Percutaneous Endoscopic Approach (ICD-10-PCS; CPT 49650; principal; 2022-08-15 09:30)
DX: K40.90 Unilateral inguinal hernia, without obstruction or gangrene, not specified as recurrent (principal); I10 Essential (primary) hypertension; I48.0 Paroxysmal atrial fibrillation; I73.9 Peripheral vascular disease, unspecified; E03.9 Hypothyroidism, unspecified; M81.0 Age-related osteoporosis without current pathological fracture; I44.7 Left bundle-branch block, unspecified; Z79.82 Long term (current) use of aspirin
CPT/HCPCS: 49650; S2900; 36415; 86850; 86900; 86901; 93005; A9270; C1781; J0690; J1100; J1885; J2370; J2405; J2704; J2710; J3010; J7120

== ENCOUNTER 2023-04-10 08:31 | Outpatient (CLI) | payer OTHER, SELFPAY ==
--- NOTE | ~2023-04-10 | CT_ITS ---
EXAMINATION: CT abdomen pelvis w con INDICATION: Dilated bile duct TECHNIQUE: Computed tomographic images of the abdomen and pelvis were obtained after the administrati on of 100 cc of Omnipaque 350 intravenous contrast. The dose-length product (DLP) was 363.85 mGy-cm. Automated exposure control and iterative reconstruction technique were employed. COMPARISON: 11/29/2021; MRI, 08/10/2021 FINDINGS: Minimal dependent atelectasis is present in the lung bases. The heart size is normal. Stabl e nodules of the visualized lower lobes are consistent with old granulomatous disease/prior infection . Punctate calcifications in an otherwise normal spleen likely represent healed granulomatous disease . There is chronic biliary dilatation the posterior segment of the right hepatic lobe without signifi cant change. No obstructing mass is identified. The pancreas, gallbladder, and adrenal glands are nor mal. Cysts of the kidneys measure up to 5.4 cm on the right. There is chronic mild left hydronephrosi s and hydroureter. No pathologically enlarged abdominal or pelvic lymph nodes are identified. No free intraperitoneal gas or evidence of bowel obstruction. There is calcified atherosclerosis of the aort a and many of the other arteries. There is severe lower lumbar spondylosis. IMPRESSION: 1. Stable, chronic biliary dilatation in the posterior segment of the right hepatic lobe of unclear e tiology. 2. Chronic mild left hydroureteronephrosis. Reviewed, dictated and finalized at location L. IMPRESSION: 1. Stable, chronic biliary dilatation in the posterior segment of the right hep atic lobe of unclear etiology. 2. Chronic mild left hydroureteronephrosis.
[2023-04-10 09:12] LABS: Estimated Glomerular Filt Rate > 60
== END 2023-04-10 08:32 | disposition home or self-care (01) ==
PROVIDERS: PCP Family Medicine; Visit Provider Physician Assistant
DX: K83.8 Other specified diseases of biliary tract (principal); R93.2 Abnormal findings on diagnostic imaging of liver and biliary tract
CPT/HCPCS: 74177; Q9967

== ENCOUNTER 2024-04-02 13:27 | Outpatient (CLI) | payer OTHER, SELFPAY ==
[2024-04-02 14:28] LABS: Add Urine Microscopic? YES; Appearance Urine Cloudy (Clear); Bacteria Urine None Seen /hpf; Bilirubin Urine Negative (Negative); Blood Urine 1+ (Negative); Color Urine Yellow (Yellow); Glucose Urine UA Negative (Negative); Ketones Urine Negative (Negative); Leukocyte Esterase Ur 3+ LEU/UL (Negative); Nitrate Urine Negative (Negative); Non Pathogenic Casts 0-2; Protein Urine Negative (Negative); RBC Urine 0-2 /hpf (0-2); Specific Grav Ur 1.009 (1.001-1.035); Squamous Epithelial Cell Urine None Seen /hpf (Few); Urobilinogen Urine 0.2 mg/dL (<2.0); WBC Urine >100 /hpf (0-3); pH Urine 5.5 (5.0-9.0)
== END 2024-04-02 13:28 | disposition home or self-care (01) ==
LOC: ANHLAB 13:34
PROVIDERS: PCP Family Medicine; Visit Provider Physician Assistant
DX: R30.0 Dysuria (principal)
CPT/HCPCS: 81001; 87077; 87086; 87088; 87186

== ENCOUNTER 2024-06-15 17:22 | Emergency (ER) | payer OTHER, SELFPAY ==
--- NOTE | ~2024-06-15 | CT_ITS ---
CT cervical spine wo con Ordering provider: Annie Michelle PA-C History: . fall . Comparison: None. Technique: CT of the cervical spine was performed without contrast. Sagittal and coronal reformatted images were also obtained and reviewed. Automated exposure control and iterative reconstruction jerri hnique were employed. The dose-length product was 119.46 mGy-cm. FINDINGS: VERTEBRAE: No subluxation or acute fracture. The occipital condyles are intact. Bilaterally minimal anterolisthesis at the level of C4-C5. DISC SPACES: Narrowing of the disc C2-C3, C5-C6 and C6-C7. Multilevel facet joint disease. Multilevel uncovertebral joint osteoarthritic changes. C2-C3: Narrowing of the left intervertebral foramen. C3-C4: Narrowing of the left intervertebral foramen. C4-C5: Normal. C5-C6: Bilateral narrowing of the foramina. C6-C7: Bilateral narrowing of the foramina. PARASPINOUS SOFT TISSUES: Normal. IMPRESSION: No acute osseous abnormality cervical spine. Multilevel degenerative disc disease. Reviewed, dictated and finalized at location A.
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
[2024-06-15 17:29] VITALS: BP 134/86; PULSE 95; RESP 18; TEMP 36.7; O2SAT 97
--- NOTE | 2024-06-15 17:52 | ECG_ITS ---
Test Date: 2024-06-15 18:35:52 Measurements Intervals [place] Rate: 81 P: 52 MT: 206 QRS: -37 QRSD: 149 T: 117 QT: 416 QTc: 484 Interpretive Statements SINUS RHYTHM LEFT AXIS DEVIATION [QRS AXIS < -30] LEFT BUNDLE BRANCH BLOCK [120+ ms QRS DURATION, 80+ ms Q/S IN V1/V2, 85+ ms R IN I/aVL/V5/V6] ABNORMAL ECG No previous ECG available for comparison Electronically Signed On 06-16-2024 10:41:06 CDT by Joaquin Rosales M.D.
[2024-06-15 18:36] LABS: Basophils Absolute Auto 0.1 K/mm3 (0.0-0.1); Basophils Percent Auto 1.2 % (0.2-1.2); Eosinophils Absolute Auto 0.3 K/mm3 (0-0.3); Eosinophils Percent Auto 4.6 % (0-4.4); Hematocrit 36.8 % (37.0-47.0); Hemoglobin 12.5 g/dL (12.0-15.0); Immature Granulocyte Absolute 0.02 K/mm3 (0.00-0.031); Immature Granulocyte Percent A 0.3 % (0-0.5); Lymphocytes Absolute Auto 1.81 K/mm3 (0.9-3.2); Lymphocytes Percent Auto 27.5 % (18.3-44.2); Mean Corpuscular Hemoglobin 32.7 pg (26-34); Mean Corpuscular Volume 96.3 fl (80-100); Monocytes Absolute Auto 0.7 K/mm3 (0.1-0.6); Monocytes Percent Auto 10.6 % (2.6-8.5); Neutrophils Absolute Auto 3.7 K/mm3 (1.3-6.7); Neutrophils Percent Auto 55.8 % (45.5-73.1); Platelet Count Result 202 k/mm3 (150-375); Red Blood Count 3.82 M/mm3 (4.2-5.4); Red Cell Distribution Width 13.1 % (11.5-14.5); White Blood Count 6.6 K/mm3 (4.5-10.0)
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
[2024-06-15 19:02] VITALS: BP 170/78; PULSE 82; RESP 17; O2SAT 97
[2024-06-15 19:02] LABS: Alanine Aminotransferase 26 U/L (6-35); Albumin Level 4.3 g/dL (3.5-5.1); Alkaline Phosphatase 74 U/L (38-126); Anion Gap 8 mmol/L (4-12); Aspartate Amino Transferase 41 U/L (14-36); Bilirubin,Total 0.8 mg/dL (0.2-1.3); Blood Urea Nitrogen 20 mg/dL (7-17); Carbon Dioxide 26 mmol/L (22-30); Chloride 101 mmol/L (98-107); Estimated CRCL calculation 31 ml/min; Estimated Glomerular Filt Rate > 60; Glucose 153 mg/dL (65-110); Potassium 3.6 mmol/L (3.4-5.0); Sodium 135 mmol/L (137-145)
[2024-06-15 19:23] LABS: Troponin I < 0.012 ng/mL (0.000-0.034)
== END 2024-06-15 20:22 | disposition home or self-care (01) ==
PROVIDERS: Emergency Provider Physician Assistant; PCP Family Medicine
DX: S01.01XA Laceration without foreign body of scalp, initial encounter (principal); I10 Essential (primary) hypertension; I73.9 Peripheral vascular disease, unspecified; I48.0 Paroxysmal atrial fibrillation; E03.9 Hypothyroidism, unspecified; M17.11 Unilateral primary osteoarthritis, right knee; M81.0 Age-related osteoporosis without current pathological fracture; Z87.440 Personal history of urinary (tract) infections; M50.31 Other cervical disc degeneration, high cervical region; I44.7 Left bundle-branch block, unspecified; W18.39XA Other fall on same level, initial encounter
CPT/HCPCS: 12002; 36415; 70450; 71046; 72125; 80053; 84484; 85025; 93005; 99284; J2004

== ENCOUNTER 2024-07-29 10:07 | Outpatient (CLI) | payer OTHER, SELFPAY ==
[2024-07-29 11:07] LABS: Alanine Aminotransferase 24 U/L (6-35); Albumin Level 4.1 g/dL (3.5-5.1); Alkaline Phosphatase 82 U/L (38-126); Anion Gap 3 mmol/L (4-12); Aspartate Amino Transferase 31 U/L (14-36); Bilirubin,Total 1.3 mg/dL (0.2-1.3); Blood Urea Nitrogen 18 mg/dL (7-17); Calcium 8.7 mg/dL (8.4-10.2); Carbon Dioxide 31 mmol/L (22-30); Chloride 99 mmol/L (98-107); Estimated Glomerular Filt Rate > 60; Glucose 100 mg/dL (65-110); Potassium 4.3 mmol/L (3.4-5.0); Sodium 133 mmol/L (137-145)
== END 2024-07-29 10:08 | disposition home or self-care (01) ==
PROVIDERS: PCP Family Medicine; Visit Provider Physician Assistant
DX: R17 Unspecified jaundice (principal)
CPT/HCPCS: 36415; 80053

== ENCOUNTER 2024-12-30 08:59 | Outpatient (CLI) | payer OTHER, SELFPAY ==
--- OUTSIDE RECORDS SUMMARY | 2024-12-30 09:25 | XMS_ITS ---
Author Name Pretty WRIGHT, MRS. Clement npal Address [address] [place] [address] Phone [phone] Organization [facility]) Care Team Providers Care Retail Office Associate Name Role Phone PrettyMariam Unavailable [phone] Alyse Fan Unavailable Reason for Referral Not Available Allergies, adverse reactions, alerts Allergen Type Reaction Severity Status Onset Date Erythromycin Allergy to substance (disorder) hives Unkno wn Active N/A History of medication use Medication Class Instructions Start Date End Date Aspirin 81 mg Tab delayed rel No Data Available 2024-12-26 No Data Available Losartan Potassium 50 mg Tab TAKE 1 TABL ET BY MOUTH TWICE A DAY 2024-06-19 No Data Available Metoprolol Succinate ER 25 mg Tab ER 24hr TAKE 1/2 TABLET BY MOUTH EVERY DAY 2024-01-06 No Data Available amLODIPine Besylate 5 mg Tab TAKE 1 TABL ET BY MOUTH EVERY DAY IN THE EVENING 2024-06-19 No Data Available Memantine 5 mg Tab TAKE 1 TABLET BY ADAM TH TWICE A DAY 2024-06-19 No Data Available Synthroid 50 MCG Tab TAKE 1 TABLET BY MO [facility] EVERY DAY 2024-06-19 No Data Available Daily Value Multivitamin Tab 1 tablet orally daily 12-29-01 No Data Available Fluticasone Propionate 50 MCG/ACT Suspension Nasal 1 spray intranasally 2 times per day in each nostril as needed 2024-12-26 No Data Available ClearLax 17 GM/SCOOP Powder 1 scoop oral ly daily mixed with 8 ounces of fluid as needed for constipation 2024-12-26 No Data Available Problem List Problem Status Onset Date Resolved Date HTN (hypertension) Active 2024-12-26 N/A Hypothyroidism Active 2024-12-26 N/A Encounters Encounters Type Facility Date of Service Diagnosis/Co mplaint Home visit for evaluation and management of new patient requiring medically appropriate examination and moderate level of medical decision making. If using time, at least 60 minutes total time on [facility] [place] 12/26/2024 Essential (primary) hypertensionHypothyroidism, unspecifiedBody mass index (BMI) 24.0-24.9, adult Home visit for evaluation and management of new patient requiring medically appropriate examination and moderate level of medical decision making. If using time, at least 60 minutes total time on [facility] [place] 12/26/2024 Essential (primary) hypertension Vital Signs Date of Collection Vitals 2024-12-26 07:30:00 Height - 154.94 cmWe ight - 57.61 kgBody Mass Index (BMI) - 24.0 kg/m2BP Diastolic - 59.0 mm[Hg]BP Systolic - 121.0 mm[Hg]Heart Rate - 64.0 /minBody Temperature - 36.56 CelO2 % BldC Oximetry - 95.0 % Social History Social History Social History Observation Description Effec tive Time Current Smoking Status Never smoker 6 Sex Female History of Procedures Procedures Service Procedure code Service date Servicing provider Phone# Home visit for evaluation and management of new patient requiring medically appropriate examination and moderate level of medical decision making. 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 2024-12-26 able to take care of the home on her own 2024-12-26 has three children that are supportive 2 walks without any assistance of a cane o r walker 2024-12-26 Mental Status No Information Assessments Date of Service Assessments 2024-12-26 07:30:00 HTN (hypertension)Hy pothyroidism Plan of Care Date of Service Plans 2024-12-26 07:30:00 Follows PCP 3-4 time s a yearchronic; controlledcontinue amlodipine 5 mg once daily, losartan 50 mg BID and metoprolol ER 25 mg 1/2 tablet once dailydiscussed caffeine and salt intakeencouraged patient to drink more water especially when doing yard workchronic; stablecontinue Synthroid 50 mcg once dailymonitored and managed by PCP Health Concerns Date Concern 2024-12-26 Healthy House Calls is a service that involves a physician or advanced practice provider conducting comprehensive assessments in your patient s home or virtually to address crucial areas such as chronic conditions, quality gaps, social concerns, fall risk prevention, and various screenings. Please note that your patient will remain attributed to you even though they are participating in this service. If you have any questions, please reach out directly to our team at the phone number above.Your patient, Janis Holman, 1935, was seen today for a Healthy House Call visit. Patient read rights and responsibilities and consented to treatment. The purpose of this summary is to update you on the patient's current health status and share any relevant findings from the examination.Had a fall in June 2024; had been outside in the heat gardening and when she came inside she passed out. Did go to the ER and had sutures in head.
--- OUTSIDE RECORDS SUMMARY | 2024-12-30 09:25 | XMS_ITS | Referral Summary ---
Author Organization [facility] [address] Address [address] [place] [address] Care Team Providers Care Final Block Press Operator Name Role Phone Carlota Yoder MD Primary Care Provider Allergies Active Allergy Reactions Criticality Noted Date Comments Soy Diarrhea Low 08/30/2010 Sulfasalazine Unknown 03/17/2008 Severe itching Tetracycline Hcl Itching Low 08/30/2010 Medications metoprolol (LOPRESSOR) 25 mg tablet Take 25 mg by mouth daily. Take 1/2 tablet (12.5mg) once daily Active levothyroxine (SYNTHROID, LEVOTHROID) 50 mcg tablet Take 50 mcg by mouth. Active multivitamin tablet tabletIndication s:Vitamin Deficiency Prevention Take 1 tablet by mouth. Active loratadine (CLARITIN) 10 mg tablet Take 10 mg by mouth daily. Active polyethylene glycol 1000,bulk, powder Active azelastine (ASTELIN) 137 mcg (0.1 %) nasal spray Administer 1 spray into each nostril 2 (two) times a day. Use in each nostril as directed Active B.ani-L.aci-L.sa l-L.plan-L.richard 10 billion cell (2 billion ea) capsule Take by mouth. Activ e Lactobacillus acidophilus 10 billion cell capsule Take by mouth. Activ e fluticasone (FLONASE) 50 mcg/actuation nasal spray Administer 1 spray into each nostril daily. Active calcium carbonate (OS-YAEL) 1,500 mg (600 mg of elemental calcium) tablet Take 1 tablet by mouth. 0 Active losartan (COZAAR) 50 mg tablet Take 1 tablet (50 mg total) by mouth daily. 7 Active Social History Tobacco Use Types Packs/Day Years Used Date Smoking Tobacco: Never Smokeless Tobacco: Never Alcohol Use Standard Drinks/Week Comments No 0 (1 standard drink = 0.6 oz pur e alcohol) Comments Unknown Sex and Gender Information Value Date Recorded Sex Assigned at Not on file Legal Sex Female 7:47 PM CLINICAL TRAINING COORDINATOR Gender Identity Not on file Sexual Orientation Not on file Last Filed Vital Signs Vital Sign Reading Time Taken Comments Blood Pressure 150/68 07/02/2017 2:47 PM CLINICAL TRAINING COORDINATOR Pulse 60 07/02/2017 2:47 PM CLINICAL TRAINING COORDINATOR Temperature - - Respiratory Rate 18 07/02/2017 2:47 PM CLINICAL TRAINING COORDINATOR Oxygen Saturation - - Inhaled Oxygen Concentration - - Weight 61.2 kg (135 lb) 07/02/2017 2:47 PM CLINICAL TRAINING COORDINATOR Height 157.5 cm (5' 2 ) 07/02/2017 2:47 PM CLINICAL TRAINING COORDINATOR Body Mass Index 24.69 07/02/2017 2:47 PM CLINICAL TRAINING COORDINATOR Plan of Treatment Not on file Insurance [facility] Care Teams Final Block Press Operator Relationship Specialty Start Date End Date Carlota Yoder MD [address] [facility] [address] [place] [address] PCP - General Family Medicine 05/29/17
--- OUTSIDE RECORDS SUMMARY | 2024-12-30 09:25 | XMS_ITS | Clinical Summary ---
Author Organization [facility] [address] Address [address] [place] [address] Care Team Providers Care Rn Coronary Care Unit Name Role Phone Carlota Yoder MD Primary [...] mg total) by mouth daily. 7 Active Family History Medical History Relation Name Comments Bleeding Disorder Father Relation Name Status Comments Father Mother Social History Tobacco Use Types Packs/Day Years Used Date Smoking Tobacco: Never Smokeless Tobacco: Never Alcohol Use Standard Drinks/Week Comments No 0 (1 standard drink = 0.6 oz pur e alcohol) Comments Unknown Sex and Gender Information Value Date Recorded Sex Assigned at Not on file Legal Sex Female 7:47 PM GAMING FLOOR SUPERVISOR Gender Identity Not on file Sexual Orientation Not on file Obstetrics History Last Filed Vital Signs Vital Sign Reading Time Taken Comments Blood Pressure 150/68 07/02/2017 2:47 PM GAMING FLOOR SUPERVISOR Pulse 60 07/02/2017 2:47 PM GAMING FLOOR SUPERVISOR Temperature - - Respiratory Rate 18 07/02/2017 2:47 PM GAMING FLOOR SUPERVISOR Oxygen Saturation - - Inhaled Oxygen Concentration - - Weight 61.2 kg (135 lb) 07/02/2017 2:47 PM GAMING FLOOR SUPERVISOR Height 157.5 cm (5' 2 ) 07/02/2017 2:47 PM GAMING FLOOR SUPERVISOR Body Mass Index 24.69 07/02/2017 2:47 PM GAMING FLOOR SUPERVISOR Plan of Treatment Not on file Insurance [facility] Care Teams Rn Coronary Care Unit Relationship Specialty Start Date End Date Carlota Yoder MD [address] [facility] [address] [place] [address] PCP - General Family Medicine 05/29/17
[2024-12-30 10:09] LABS: Free T4 Free Thyroxine 1.32 ng/dL (0.78-2.19)
[2024-12-30 10:18] LABS: Thyroid Stimulating Hormone 0.993 uIU/mL (0.465-4.680)
== END 2024-12-30 09:00 | disposition home or self-care (01) ==
PROVIDERS: PCP Family Medicine
DX: E03.9 Hypothyroidism, unspecified (principal)
CPT/HCPCS: 36415; 84439; 84443

== ENCOUNTER 2025-08-22 09:39 | Outpatient (CLI) | payer OTHER, SELFPAY ==
--- OUTSIDE RECORDS SUMMARY | 2025-08-22 09:42 | XMS_ITS | Clinical Summary ---
Author Organization [facility] [address] Address [address] [place] [address] Care Team Providers Care Small Piece Cutter Name Role Phone Carlota Yoder MD Primary [...] on file Legal Sex Female 7:47 PM PRODUCTION MECHANIC Gender Identity Not on file Sexual Orientation Not on file Last Filed Vital Signs Vital Sign Reading Time Taken Comments Blood Pressure 150/68 07/02/2017 2:47 PM PRODUCTION MECHANIC Pulse 60 07/02/2017 2:47 PM PRODUCTION MECHANIC Temperature - - Respiratory Rate 18 07/02/2017 2:47 PM PRODUCTION MECHANIC Oxygen Saturation - - Inhaled Oxygen Concentration - - Weight 61.2 kg (135 lb) 07/02/2017 2:47 PM PRODUCTION MECHANIC Height 157.5 cm (5' 2) 07/02/2017 2:47 PM PRODUCTION MECHANIC Body Mass Index 24.69 07/02/2017 2:47 PM PRODUCTION MECHANIC Plan of Treatment Not on file Insurance [facility] Care Teams Small Piece Cutter Relationship Specialty Start Date End Date Carlota Yoder MD [address] [address] PCP - General Family Medicine 05/29/17
--- OUTSIDE RECORDS SUMMARY | 2025-08-22 09:42 | XMS_ITS | Clinical Summary ---
Author Organization [facility] Address [address] [place] [address] Care Team Providers Care Shrink Pit Operator Name Role Phone Pcp, Meenakshi Primary Care Provider [phone] Social History Tobacco Use Types Packs/Day Years Used Date Smoking Tobacco: Never Assessed Comments Unknown Sex and Gender Information Value Date Recorded Sex Assigned at Not on file Legal Sex Female 10:56 AM EST Gender Identity Not on file Sexual Orientation Not on file Plan of Treatment Not on file Medical Devices Not on file Care Teams Shrink Pit Operator Relationship Specialty Start Date End Date PcpMeenakshi PCP - General Family Medicine 08/03/21
--- OUTSIDE RECORDS SUMMARY | 2025-08-22 09:42 | XMS_ITS ---
Author Name Pretty WIRGHT, MRS. Clement npal Address [address] [place] [phone] Phone [phone] Organization [facility] ([facility]) Care Team Providers Care Technician Biological Health Name Role Phone PrettyMariam Unavailable [phone] Zane Win Unavailable [phone] Alyse Fan Unavailable Reason for Referral Not [...] MCG Tab TAKE 1 TABLET BY MO [facility] EVERY DAY 2024-06-19 No Data Available Daily [...] List Problem Status Onset Date Resolved Date Synopsis HTN (hypertension) Active 2024-12-26 N/A N/A Hypothyroidism Active 2024-12-26 N/A had TSH do ne at most recent PCP visit; normal per patient; no medication changes made Encounters Encounters Type Facility Date of Service Diagnosis/Co mplaint Home visit for evaluation and management of new patient requiring medically appropriate examination and moderate level of medical decision making. If using time, at least 60 minutes total time on [facility] [place] 12/26/2024 Essential (primary) hypertensionHypothyroidism, unspecifiedBody mass index (BMI) 24.0-24.9, adult Home visit for evaluation and management of new patient requiring medically appropriate examination and moderate level of medical decision making. If using time, at least 60 minutes total time on [facility] [place] 12/26/2024 Essential (primary) hypertension Vital [...] tive Time Current Smoking Status Never smoker 2025-07-28 7 Sex Female History of Procedures Procedures Service Procedure code Service date Servicing provider Phone# Home visit for evaluation and management of new patient requiring medically appropriate examination and moderate level of medical decision making. 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 Did go to the ER and had sutures in head.
[2025-08-22 10:04] LABS: Add Urine Microscopic? YES; Appearance Urine Cloudy (Clear); Glucose Urine UA Negative (Negative); Leukocyte Esterase Ur 3+ LEU/UL (Negative); Nitrate Urine Positive (Negative); Non Pathogenic Casts 0-2; Specific Grav Ur 1.012 (1.001-1.035)
== END 2025-08-22 09:40 | disposition home or self-care (01) ==
PROVIDERS: PCP Family Medicine
DX: N39.0 Urinary tract infection, site not specified (principal)
CPT/HCPCS: 81001